=== PATIENT | female | born 1990 | race Caucasian/White ===

== ENCOUNTER → 2017-02-27 | Outpatient (CLI) | payer OTHER ==
[2014-05-04 13:20] VITALS: BP 120/78
[2017-02-27 14:16] LABS: TOTAL PROTEIN,URINE 17.2 mg/dl (0-11.9)
== END ==
LOC: LAB 13:54
PROVIDERS: ATTEND Specialist
DX: Z34.80 Encounter for supervision of other normal pregnancy, unspecified trimester (principal); R03.0 Elevated blood-pressure reading, without diagnosis of hypertension
CPT/HCPCS: 81050; 84157

== ENCOUNTER → 2017-04-16 | Outpatient (CLI) | payer OTHER ==
[2014-05-04 13:20] VITALS: BP 120/78
[2017-04-16 16:48] LABS: BILIRUBIN,URINE NEGATIVE (NEGATIVE); BLOOD/HEMOGLOBIN,URINE 1+ (NEGATIVE); GLUCOSE, URINE NEGATIVE (NEGATIVE); KETONES,URINE 1+ (NEGATIVE); LEUKOCYTE ESTERASE ,URINE 3+ (NEGATIVE); NITRITES,URINE NEGATIVE (NEGATIVE); PROTEIN,URINE 1+ (NEGATIVE); UROBILINOGEN,URINE NORMAL (NORMAL)
[2017-04-16 16:49] LABS: BASOPHILS # (AUTO) 0.1 X10^3/uL (0.0-0.1); BASOPHILS % (AUTO) 0.3 % (0.2-1.0); EOSINOPHILS # (AUTO) 0.1 x10^3/uL (0.0-0.2); EOSINOPHILS % (AUTO) 0.3 % (0.9-2.9); HEMATOCRIT 33.2 % (36.0-47.0); HEMOGLOBIN 11.1 g/dL (12.0-16.0); LYMPHOCYTES % (AUTO) 17.1 % (21.0-51.0); MEAN CORPUSCULAR HEMOGLOBIN 26.5 pg (27.0-34.0); MEAN CORPUSCULAR HGB CONC 33.4 g/dL (33.0-35.0); MEAN CORPUSCULAR VOLUME 79.4 fL (80.0-100.0); MEAN PLATELET VOLUME 8.6 fL (7.4-11.0); MONOCYTES # (AUTO) 1.3 x10^3/uL (0.3-0.8); MONOCYTES % (AUTO) 7.4 % (0.0-13.0); NEUTROPHILS # (AUTO) 13.2 x10^3/uL (2.2-4.8); NEUTROPHILS % (AUTO) 74.9 % (42.0-75.0); PLATELET COUNT 246 X10^3/uL (150.0-450.0); RED BLOOD COUNT 4.18 X10^6/uL (3.5-5.4); RED CELL DISTRIBUTION WIDTH 15.6 % (11.6-16.5); WHITE BLOOD COUNT 17.6 X10^3/uL (3.6-10.0)
[2017-04-16 16:58] LABS: APPEARANCE,URINE HAZY (CLEAR); BACTERIA,URINE 1+ /HPF (NEGATIVE); COLOR,URINE YELLOW (YELLOW); RBC,URINE 0-2 /HPF (NEGATIVE); SQUAMOUS EPITHELIAL CELL,UR FEW /HPF (NEGATIVE)
[2017-04-16 17:19] LABS: BLOOD UREA NITROGEN 7 mg/dL (7-18); CALCIUM 9.1 mg/dL (8.5-10.1); CARBON DIOXIDE 24.8 mmol/L (21-32); CHLORIDE 104 mmol/L (98-107); CREATININE 0.71 mg/dL (0.55-1.02); SODIUM 136 mmol/L (136-145); eGFR BLACK RACES > 60 (>60); eGFR NON BLACK RACES > 60 (>60)
== END ==
LOC: LAB 16:25
PROVIDERS: ATTEND Specialist
DX: Z01.812 Encounter for preprocedural laboratory examination (principal); Z34.83 Encounter for supervision of other normal pregnancy, third trimester
CPT/HCPCS: 36415; 80048; 81001; 85025; 86592; 86850; 86900; 86901; 87086

== ENCOUNTER 2017-04-18 06:45 | Inpatient (IN) | payer BC, OTHER ==
[~2017-04-18 06:45] MED LIST: D5 1/2 NS 1000 ML 1,000 ML IV ONE; D5 1/2 NS 1L W PITOCIN 20 UNITS/L 20 UNITS/1,000 ML BAG IV ONE; D5LR 1L W PITOCIN 10 UNITS/L 10 UNITS/1,000 ML BAG IV ONE; PITOCIN ONE
[2017-04-18] MEDS ORDERED: PHENERGAN INJ 25 MG IV PRN ×3 (06:57→17:14)
[2017-04-18] MEDS ORDERED: REGLAN INJ 10 MG VIAL IVP PRN ×2 (06:57→17:14)
[2017-04-18] MEDS ORDERED: D5LR 1L W PITOCIN 10 UNITS/L 10 UNITS/1,000 ML BAG IV PRN (06:57)
[2017-04-18] MEDS ORDERED: NUBAIN INJ 200 MG VIAL MULTIDOSE IVP PRN (06:57)
[2017-04-18] MEDS ORDERED: MORPHINE SULFATE INJ 2 MG INJ IVP PRN (06:57)
[2017-04-18] MEDS ORDERED: D5 1/2 NS 1000 ML 1,000 ML IV SCH (06:57)
[2017-04-18] MEDS ORDERED: PITOCIN IVP ONE (06:57)
--- NOTE | 2017-04-18 07:32 | DR.OB ---
OB Quick Note - Assessment/Plan Assessment/Plan: L&D 04/18/17 at 7:15am S-No complaint. O-Afebrile,VSS [id number] with good LTV, +accel, no decel. CTX=irreg., mild CVX=3cm/50%/0/VTX AROM with clear fluid. IUPC and FSE placed. A-IUP at 38 2/7 weeks for induction PIH Rh- h/o chlamydia P-Begin pitocin induction Anticipate
[2017-04-18] MEDS ORDERED: NUBAIN INJ 10 ONE (09:11)
[2017-04-18] MEDS ORDERED: LR 1000 ML IV 1,000 ML IV ONE ×2 (09:28→14:41)
[2017-04-18] MEDS ORDERED: NAROPIN EPIDURAL 0.2% + FENTANYL 90MCG 60 ML EPI ONE (09:28)
[2017-04-18] MEDS ORDERED: FENTANYL INJ 100 mcg ONE (09:29)
--- NOTE | 2017-04-18 11:52 | DR.OB ---
OB Quick Note - Assessment/Plan Assessment/Plan: L&D 04/18/17 at 11:40am Pitocin=8mu/min. S-No complaint. s/p epidural. O-Afebrile,VSS PGY=900 with good LTV, +accel, no decel. CTX=q 1 1/2 to 2 min., about 45-60mmHg CVX=5cm/75%/0 A-IUP at 38 2/7 weeks PIH Rh- P-Cont. pitocin induction Anticipate
[2017-04-18] MEDS ORDERED: NAROPIN EPIDURAL 0.2% + FENTANYL 90MCG EPI SCH (15:00)
[2017-04-18] MEDS ORDERED: MOTRIN TAB 800 MG PO PRN (15:57)
[2017-04-18] MEDS ORDERED: D5 1/2 NS 1000 ML 1,000 ML with PITOCIN 20 UNITS IV SCH ×2 (16:00)
--- NOTE | 2017-04-18 16:53 | DR.OB ---
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 Head delivered over intact perineum. No nuchal cord. Nose and mouth bulb suctioned. Body delivered over intact perineum. Cord clamped x 2 and cut. Infant handed to attendant. Cord sent for gases. Placenta delivered spontaneously / intact / 3 vessel cord. No CVX / vaginal / perineal tears. Viable male infant, wt=7'13" and 9/10, stable to NBN. Mother stable to RR. EPS=[id number].
[2017-04-18] MEDS ORDERED: DERMOPLAST SPRAY TOP PRN (17:14)
[2017-04-18] MEDS ORDERED: MILK OF MAGNESIA PO PRN (17:14)
[2017-04-18] MEDS ORDERED: ADACEL TDaP IM ONE (17:14)
[2017-04-18] MEDS ORDERED: HYPERRHO S/D (or RHOGAM) IM PRN (17:14)
[2017-04-18] MEDS ORDERED: AMBIEN PO PRN (17:14)
[2017-04-18] MEDS: MOTRIN TAB 800 MG PO PRN (18:03)
[2017-04-18] MEDS: ZANTAC PO SCH (20:26)
[2017-04-18] MEDS: PERCOCET TAB 5/325 MG PO PRN (23:21)
[2017-04-19] MEDS: D5 1/2 NS 1000 ML 1,000 ML with PITOCIN 20 UNITS IV SCH ×2 (00:53)
[2017-04-19 05:34] LABS: HEMATOCRIT 26.3 % (36.0-47.0); HEMOGLOBIN 8.8 g/dL (12.0-16.0)
[2017-04-19] MEDS ORDERED: MARCAINE 0.25% WITH EPI IJ ONE (08:38)
[2017-04-19] MEDS ORDERED: NORMODYNE TAB 100 MG PO SCH (09:00)
[2017-04-19] MEDS: ZANTAC PO SCH ×2 (09:48→21:29)
[2017-04-19] MEDS: PRENATAL PLUS PO SCH (09:48)
[2017-04-19] MEDS: FERROUS SULFATE PO SCH ×2 (10:09→18:04)
[2017-04-19] MEDS: MOTRIN TAB 800 MG PO PRN ×2 (10:09→18:13)
[2017-04-19] MEDS: PERCOCET TAB 5/325 MG PO PRN (21:29)
[2017-04-20] MEDS: PERCOCET TAB 5/325 MG PO PRN ×3 (02:25→13:58)
[2017-04-20] MEDS: D5 1/2 NS 1000 ML 1,000 ML with PITOCIN 20 UNITS IV SCH ×2 (08:47)
[2017-04-20] MEDS: FERROUS SULFATE PO SCH (08:47)
[2017-04-20] MEDS: PRENATAL PLUS PO SCH (08:47)
[2017-04-20] MEDS: ZANTAC PO SCH (08:47)
[2017-04-20] MEDS: MOTRIN TAB 800 MG PO PRN (12:03)
[2017-04-20 13:04] VITALS: BP 129/78
== END 2017-04-20 14:59 | disposition home or self-care (01) | DRG 774 ==
LOC: LD 06:45 → MED/SURG 17:18
PROVIDERS: ADMIT Specialist; ATTEND Specialist
PROC: 10E0XZZ Delivery of Products of Conception, External Approach (ICD-10-PCS; principal; 2017-04-18)
PROC: 10907ZC Drainage of Amniotic Fluid, Therapeutic from Products of Conception, Via Natural or Artificial Opening (ICD-10-PCS; 2017-04-18)
PROC: 3E033VJ Introduction of Other Hormone into Peripheral Vein, Percutaneous Approach (ICD-10-PCS; 2017-04-18)
PROC: 3E0334Z Introduction of Serum, Toxoid and Vaccine into Peripheral Vein, Percutaneous Approach (ICD-10-PCS; 2017-04-18)
DX: O13.4 Gestational [pregnancy-induced] hypertension without significant proteinuria, complicating childbirth (principal); O98.82 Other maternal infectious and parasitic diseases complicating childbirth; O36.0930 Maternal care for other rhesus isoimmunization, third trimester, not applicable or unspecified; Z3A.38 38 weeks gestation of pregnancy; Z37.0 Single live birth
CPT/HCPCS: 09167; 36415; 59409; 83615; 84450; 84460; 84550; 85014; 85018; 85384; 85461; 85610; 85730; 86850; 86900; 86901; A4216; S0020; S0197; J2300; J2590; J2790; J3010; J7042; J7120

== ENCOUNTER 2020-10-24 12:43 | Inpatient (IN) ==
[~2020-10-24 12:43] MED LIST changes: -D5 1/2 NS 1000 ML 1,000 ML IV ONE; -D5 1/2 NS 1L W PITOCIN 20 UNITS/L 20 UNITS/1,000 ML BAG IV ONE; -D5LR 1L W PITOCIN 10 UNITS/L 10 UNITS/1,000 ML BAG IV ONE; -PITOCIN ONE; +ZOFRAN INJ 4 MG VIAL ONE
[2020-10-24] MEDS ORDERED: BETADINE SOLN ONE (12:48)
[2020-10-24] MEDS ORDERED: PITOCIN ONE (12:48)
[2020-10-24] MEDS ORDERED: D5 1/2 NS 1000 ML 1,000 ML IV ONE (12:48)
[2020-10-24] MEDS ORDERED: D5LR 1L W PITOCIN 10 UNITS/L 10 UNITS/1,000 ML BAG IV ONE (12:49)
[2020-10-24] MEDS ORDERED: D5 1/2 NS 1L W PITOCIN 20 UNITS/L 20 UNITS/1,000 ML BAG IV ONE (12:49)
[2020-10-24 12:57] VITALS: BMI 28.0
[2020-10-24] MEDS ORDERED: AMPICILLIN VIAL 2 GRAM 2 G in NS 100 ML IV + SPIKE MINIBAG* 100 ML IV SCH (13:00)
[2020-10-24 13:07] LABS: BILIRUBIN,URINE NEGATIVE (NEGATIVE); BLOOD/HEMOGLOBIN,URINE 4+ (NEGATIVE); GLUCOSE, URINE NEGATIVE (NEGATIVE); KETONES,URINE 2+ (NEGATIVE); LEUKOCYTE ESTERASE ,URINE 3+ (NEGATIVE); NITRITES,URINE NEGATIVE (NEGATIVE); PROTEIN,URINE 3+ (NEGATIVE); UROBILINOGEN,URINE NORMAL (NORMAL)
[2020-10-24 13:14] LABS: AMNISURE ROM TEST THERE IS A RUPTURE (NO RUPTURE)
[2020-10-24 13:15] LABS: APPEARANCE,URINE CLOUDY (CLEAR); BACTERIA,URINE TRACE /HPF (NEGATIVE); COLOR,URINE YELLOW (YELLOW); SQUAMOUS EPITHELIAL CELL,UR NUMEROUS /HPF (NEGATIVE)
[2020-10-24] MEDS ORDERED: D5LR 1L W PITOCIN 10 UNITS/L 10 UNITS/1,000 ML BAG IV PRN (13:30)
[2020-10-24] MEDS ORDERED: PITOCIN IVP ONE (13:30)
[2020-10-24] MEDS ORDERED: REGLAN INJ 10 MG VIAL IVP PRN ×3 (13:30→20:36)
[2020-10-24] MEDS ORDERED: PHENERGAN INJ 25 MG IM PRN ×2 (13:30→20:15)
[2020-10-24] MEDS ORDERED: NUBAIN INJ 200 MG VIAL MULTIDOSE IVP PRN (13:30)
[2020-10-24] MEDS ORDERED: AMPICILLIN VIAL 2 GRAM ONE (13:34)
[2020-10-24] MEDS ORDERED: NS 100 ML IV 100 ML IV ONE ×2 (13:35→17:20)
[2020-10-24 14:13] LABS: BASOPHILS # (AUTO) 0.1 X10^3/uL (0.0-0.1); BASOPHILS % (AUTO) 0.4 % (0.2-1.0); EOSINOPHILS % (AUTO) 0.3 % (0.9-2.9); HEMATOCRIT 34.2 % (36.0-47.0); HEMOGLOBIN 11.7 g/dL (12.0-16.0); LYMPHOCYTES # (AUTO) 2.5 X10^3/uL (1.3-2.9); LYMPHOCYTES % (AUTO) 17.9 % (21.0-51.0); MEAN CORPUSCULAR HEMOGLOBIN 30.7 pg (27.0-34.0); MEAN CORPUSCULAR VOLUME 90.3 fL (80.0-100.0); MEAN PLATELET VOLUME 8.5 fL (7.4-11.0); MONOCYTES # (AUTO) 0.6 x10^3/uL (0.3-0.8); MONOCYTES % (AUTO) 4.5 % (0.0-13.0); NEUTROPHILS # (AUTO) 10.8 x10^3/uL (2.2-4.8); NEUTROPHILS % (AUTO) 76.9 % (42.0-75.0); PLATELET COUNT 224 X10^3/uL (150.0-450.0); RED BLOOD COUNT 3.79 X10^6/uL (3.5-5.4); RED CELL DISTRIBUTION WIDTH 13.2 % (11.6-16.5); WHITE BLOOD COUNT 14.1 X10^3/uL (3.6-10.0)
[2020-10-24 14:18] LABS: BLOOD UREA NITROGEN 7 mg/dL (7-18); CALCIUM 8.7 mg/dL (8.5-10.1); CARBON DIOXIDE 20.6 mmol/L (21-32); CHLORIDE 101 mmol/L (98-107); CREATININE 0.65 mg/dL (0.55-1.02); SODIUM 134 mmol/L (136-145); eGFR NON BLACK RACES > 60 (>60)
[2020-10-24] MEDS ORDERED: STADOL INJ IVP PRN (15:12)
[2020-10-24] MEDS ORDERED: STADOL INJ ONE (15:51)
[2020-10-24] MEDS ORDERED: AMPICILLIN VIAL 1 GRAM 1 G in NS 50 ML IV + SPIKE MINIBAG* 50 ML IV SCH (17:00)
--- NOTE | 2020-10-24 17:08 | DR.OB ---
OB Quick Note - Assessment/Plan Assessment/Plan: L&D 10/24/20 at 5:00pm Pitocin=4mu/min. S-No complaint except CTX. O-Afebrile,VSS [id number] with good LTV, +accel, no decel. CTX=q 1 1/2 to 2 min., about 55-75mmHg CVX=2cm/50%/-1 A-IUP at 36 6/7 weeks in labor/SROM Multiparity +GBS Rh- PIH P-Cont. pitocin induction/ABX in labor Anticipate
[2020-10-24] MEDS ORDERED: AMPICILLIN VIAL 1 GRAM ONE (17:20)
[2020-10-24] MEDS ORDERED: LR 1000 ML IV 1,000 ML IV ONE (17:25)
[2020-10-24] MEDS ORDERED: NAROPIN EPIDURAL 0.2% 100 ML ONE (18:06)
[2020-10-24] MEDS ORDERED: FENTANYL INJ 100 mcg ONE (18:06)
[2020-10-24] MEDS ORDERED: EPHEDRINE SULFATE INJ ONE ×2 (18:36→18:50)
[2020-10-24] MEDS ORDERED: XYLOCAINE 2% and EPINEPHRINE 1:100,000 ONE ×2 (18:45→18:50)
[2020-10-24] MEDS ORDERED: NS 1000 ML 1,000 ML ONE (18:45)
[2020-10-24] MEDS ORDERED: ANCEF 1 GRAM IV PREMIX* 1 G/50 ML BAG IV ONE (18:54)
[2020-10-24] MEDS ORDERED: ZOFRAN INJ 4 MG VIAL IVP PRN ×2 (20:15→20:36)
[2020-10-24] MEDS ORDERED: DILAUDID INJ IVP PRN (20:15)
[2020-10-24] MEDS ORDERED: BENADRYL INJ 50 MG VIAL IVP PRN ×2 (20:15→20:36)
[2020-10-24] MEDS ORDERED: MYLICON TAB 80 MG CHEW PO PRN (20:36)
[2020-10-24] MEDS ORDERED: ADACEL or BOOSTRIX TDaP VACCINE IM ONE (20:36)
[2020-10-24] MEDS ORDERED: NARCAN INJ IVP PRN (20:36)
[2020-10-24] MEDS ORDERED: PERCOCET TAB 5/325 MG PO PRN (20:36)
[2020-10-24] MEDS ORDERED: HYPERRHO S/D (or RHOGAM) IM PRN (20:36)
[2020-10-24] MEDS ORDERED: D5 1/2 NS 1000 ML 1,000 ML with PITOCIN 20 UNITS IV SCH ×2 (21:00)
[2020-10-24] MEDS: TORADOL 30 MG VIAL IVP PRN (23:38)
[2020-10-25] MEDS: TORADOL 30 MG VIAL IVP PRN (05:37)
[2020-10-25 05:50] LABS: HEMATOCRIT 21.7 % (36.0-47.0)
[2020-10-25 05:53] LABS: HEMOGLOBIN 7.3 g/dL (12.0-16.0)
[2020-10-25] MEDS: COLACE CAP 100 MG PO SCH ×2 (08:28→20:18)
[2020-10-25] MEDS: PRENATAL PLUS PO SCH (08:28)
[2020-10-25] MEDS: MOTRIN TAB 800 MG PO PRN ×2 (09:15→17:11)
[2020-10-25] MEDS: PERCOCET TAB 5/325 MG PO PRN ×2 (12:07→21:19)
[2020-10-25] MEDS: D5 1/2 NS 1000 ML 1,000 ML with PITOCIN 20 UNITS IV SCH ×4 (12:41→22:23)
[2020-10-25] MEDS: BACTROBAN TOPICAL OINT TOP SCH ×2 (13:54→22:24)
[2020-10-25] MEDS: FERROUS GLUCONATE PO SCH (16:55)
[2020-10-26] MEDS: PERCOCET TAB 5/325 MG PO PRN ×2 (02:44→08:04)
[2020-10-26] MEDS: D5 1/2 NS 1000 ML 1,000 ML with PITOCIN 20 UNITS IV SCH ×2 (05:28)
[2020-10-26] MEDS: BACTROBAN TOPICAL OINT TOP SCH (05:40)
[2020-10-26] MEDS: FERROUS GLUCONATE PO SCH (06:03)
[2020-10-26] MEDS: COLACE CAP 100 MG PO SCH (08:04)
[2020-10-26] MEDS: PRENATAL PLUS PO SCH (08:05)
[2020-10-26 08:21] VITALS: BP 117/68
== END 2020-10-26 11:30 | disposition home or self-care (01) | DRG 784 ==
LOC: ER 12:43 → LD 13:25 → MED/SURG 20:34
PROVIDERS: ADMIT Specialist; ATTEND Specialist